=== PATIENT | male | born 1945 | race Hispanic/Latino ===

== ENCOUNTER → 2018-06-26 | Day surgery (SDC) | payer OTHER ==
[2018-06-21 16:39] LABS: BASOPHILS % 0.3 % (0.0-1.0); EOSINOPHILS # (AUTO) 0.4 (0.0-0.4); HEMATOCRIT 40.6 % (38.2-49.6); HEMOGLOBIN 13.7 g/dL (14.0-18.0); LYMPHOCYTES # (AUTO) 2.2 (1.0-3.2); LYMPHOCYTES % 24.5 % (18.0-39.1); MEAN CORPUSCULAR HEMOGLOBIN 32.4 pg (28-32); MEAN CORPUSCULAR HGB CONC 33.7 g/dL (31-35); MONOCYTES # (AUTO) 0.7 (0.2-0.8); MONOCYTES % 7.6 % (4.4-11.3); NEUTROPHILS # (AUTO) 5.7 (2.1-6.9); NEUTROPHILS % 63.3 % (38.7-80.0); PLATELET COUNT 255 x10e3/uL (140-360); RED BLOOD COUNT 4.23 x10e6/uL (4.3-5.7); RED CELL DISTRIBUTION WIDTH 13.4 % (11.7-14.4)
[2018-06-21 16:57] LABS: ANION GAP 11.9 mmol/L (8-16); BLOOD UREA NITROGEN 17 mg/dL (7-26); BUN/CREATININE RATIO 17 (6-25); CALCIUM 9.2 mg/dL (8.4-10.2); CARBON DIOXIDE 27 mmol/L (22-29); CHLORIDE 102 mmol/L (98-107); EST GLOMERULAR FILTRATION RATE > 60 ML/MIN (60-); GLUCOSE 95 mg/dL (74-118); POTASSIUM 3.9 mmol/L (3.5-5.1); SODIUM 137 mmol/L (136-145)
--- NOTE | 2018-06-21 17:07 | Diagnostic Imaging Report ---
EXAMINATION: PA and lateral views of the chest. COMPARISON: None CLINICAL HISTORY: Preadmission DISCUSSION: Lines/tubes: None. Lungs: The lungs are well inflated and clear. No pneumonia or pulmonary edema. Pleura: No pleural effusion or pneumothorax. Heart and mediastinum: The cardiomediastinal silhouette is normal. Bones and soft tissues: No acute bony abnormalities. IMPRESSION: No acute cardiopulmonary abnormalities. Signed by: Dr. Shailesh Ervin M.D. on 06/21/2018 5:04 PM
[~2018-06-26] MED LIST: BACITRACIN 50,000 UNIT VIAL ONE; CEFAZOLIN SOD 2 GM/D5W 50ML 50 ML IV ONE; DEXAMETHASONE SOD PHOS INJ 4 MG/ML VIAL ONE; FENTANYL CITRATE/PF 100MCG/2 ML INJ ONE; HYDROCHLOROTHIA25 MG PO; LIDOCAINE HCL 2% LOCAL INJ 5 ML SDV VIAL INJ ONE; LIPITOR10 MG PO; LISINOPRIL2.5 MG PO; METFORMIN HCL500 MG PO; MIDAZOLAM HCL 2 MG/2 ML VIAL ONE; ONDANSETRON HCL INJ 2 MG/ML VIAL ONE; PROPOFOL IV EMULSION 10 MG/ML 20 ML VIAL ONE; SEVOFLURANE INHAL SOLN 250 ML PEN BTL ONE
[2018-06-26 13:05] VITALS: BP 128/62
--- NOTE | 2018-06-26 14:29 | Operative Report ---
DATE OF PROCEDURE: June 26, 2018 PREOPERATIVE DIAGNOSIS: Painful hammertoe contracture with dislocated subluxed 2nd metatarsophalangeal joint right foot. 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 OPERATION PERFORMED: Amputation and disarticulation of the metatarsophalangeal joint level. COPYING MACHINE MECHANIC: None. ANESTHESIA: General LMA. HEMOSTASIS: Pneumatic tourniquet right thigh inflated to 350 mmHg. ESTIMATED BLOOD LOSS: Less than 5 mL. INJECTABLES: 10 mL of 2% lidocaine plain. INDICATIONS FOR PROCEDURE: Mr. Lee is a pleasant male having discomfort and pain secondary to the aforementioned, educated on risks and complications of the procedures performed, and he is willing and able to proceed. Also, options as far as forefoot correction were given and he seemed more inclined to undergo amputation. DESCRIPTION OF PROCEDURE: Under mild sedation, he was brought into the operating room, placed on the operating room table in the supine position. Following induction and administration of general LMA anesthesia by the anesthesia services, a well-padded pneumatic tourniquet was placed on the patient's right thigh. Next, the distal right lower extremity was scrubbed, prepped and draped in the usual aseptic manner. The extremity was then elevated, exsanguinated, and the tourniquet inflated to 350 mmHg. Attention was then directed to the 2nd metatarsophalangeal joint area where 2 converging elliptical incisions were created with the digit being in the center of the same upon completion of the incisions. These were then carried down to the 2nd metatarsophalangeal joint level and then sharply dissecting down through the same, effectively disarticulating the digit and passing it from the operative site. The area was then copiously irrigated. Subsequently closure occurred in layers. A local block was administered. Dressings were applied, tourniquet deflated, patient extubated and transferred to PACU with vital signs stable. Job#: [id number]
== END | disposition home or self-care (01) ==
LOC: OR 08:26
PROVIDERS: ATTEND Podiatrist Foot Surgery
DX: S93.124A Dislocation of metatarsophalangeal joint of right lesser toe(s), initial encounter (principal); M20.41 Other hammer toe(s) (acquired), right foot; E11.9 Type 2 diabetes mellitus without complications; I10 Essential (primary) hypertension; F17.200 Nicotine dependence, unspecified, uncomplicated; X58.XXXA Exposure to other specified factors, initial encounter; Z01.810 Encounter for preprocedural cardiovascular examination; Z01.812 Encounter for preprocedural laboratory examination; Z01.818 Encounter for other preprocedural examination; Z79.84 Long term (current) use of oral hypoglycemic drugs
CPT/HCPCS: 28820; 36415 ×2; 71046; 80048; 82948; 85025; 88304; 88311; 93005; J1100; J2001; J2250; J2405